=== PATIENT | female | born 1935 | race Caucasian/White ===

== ENCOUNTER 2017-08-31 06:17 | Emergency (ER) | payer OTHER, BC ==
[2017-08-31 06:28] VITALS: BP 176/85; BMI 20.2
--- NOTE | 2017-08-31 07:06 | RAD ---
HISTORY: Dizziness Study: Chest AP portable Comparison: 09/05/2012 Findings: The heart is minimally enlarged. No congestive heart failure is noted. The lungs are hyperinflated bu t free of acute alveolar infiltrates. No pleural effusions are identified. The bony thorax is unremar kable. IMPRESSION: Lungs hyperinflated but clear Minimal cardiomegaly without congestive heart failure Reported By:
[2017-08-31 07:16] LABS: BASOPHILS # (AUTO) 0.1 X10^3/uL (0.0-0.1); BASOPHILS % (AUTO) 0.8 % (0.2-1.0); EOSINOPHILS # (AUTO) 0.3 x10^3/uL (0.0-0.2); EOSINOPHILS % (AUTO) 3.9 % (0.9-2.9); HEMATOCRIT 43.6 % (36.0-47.0); LYMPHOCYTES % (AUTO) 27.4 % (21.0-51.0); MEAN CORPUSCULAR HEMOGLOBIN 31.7 pg (27.0-34.0); MEAN CORPUSCULAR HGB CONC 34.4 g/dL (33.0-35.0); MEAN CORPUSCULAR VOLUME 92.3 fL (80.0-100.0); MEAN PLATELET VOLUME 8.9 fL (7.4-11.0); MONOCYTES # (AUTO) 0.8 x10^3/uL (0.3-0.8); MONOCYTES % (AUTO) 10.5 % (0.0-13.0); NEUTROPHILS # (AUTO) 4.3 x10^3/uL (2.2-4.8); NEUTROPHILS % (AUTO) 57.4 % (42.0-75.0); PLATELET COUNT 238 X10^3/uL (150.0-450.0); RED BLOOD COUNT 4.73 X10^6/uL (3.5-5.4); RED CELL DISTRIBUTION WIDTH 13.4 % (11.6-16.5); WHITE BLOOD COUNT 7.5 X10^3/uL (3.6-10.0)
[2017-08-31 07:17] LABS: BLOOD UREA NITROGEN 18 mg/dL (7-18); CARBON DIOXIDE 29.1 mmol/L (21-32); CHLORIDE 106 mmol/L (98-107); COR NA(FOR HYPERGLY) 144 mmol/L (136-145); CREATININE 1.14 mg/dL (0.55-1.02); SODIUM 143 mmol/L (136-145); TROPONIN I < 0.02 ng/mL (0-1.5); eGFR BLACK RACES 59 (>60); eGFR NON BLACK RACES 49 (>60)
[2017-08-31 07:21] LABS: ALANINE AMINOTRANSFERASE 26 Units/L (12-78); ALBUMIN 3.4 g/dL (3.4-5.0); ALKALINE PHOSPHATASE 73 Units/L (46-116); ASPARTATE AMINO TRANSFERASE 23 Units/L (15-37); CREATINE KINASE 123 Units/L (26-192); CREATINE KINASE MB 2.5 ng/mL (0-4.0); MAGNESIUM 1.9 mg/dL (1.7-2.9); TOTAL PROTEIN 7.2 g/dL (6.4-8.2)
[2017-08-31] MEDS ORDERED: ANTIVERT TAB 25 MG PO ONE (07:36)
[2017-08-31] MEDS ORDERED: ANTIVERT TAB 25 MG ONE (07:37)
--- NOTE | 2017-08-31 07:40 | DR.GENAD ---
HPI - PCP Primary Care Physician: pelletier - Complaint/Symptoms Chief Complaint Doctors Comments: I have dizzines from yesterday. This is positional with position or body changes. She feels light headed and unsteady like things are moving around her especially when assuming the upright position after bending. There is some tinnitus, nausea but no vomitting. She denies SOB or chest pain. Chief Complaint:: pt states" i'm having terrible dizziness and ringing in my ears and i've been nauseaed and vomiting" - Nurses notes reviewed Nurses Notes Review: Yes - Source History Provided: Patient - Mode of Arrival Mode of Arrival: Wheelchair - Timing Onset of Chief Complaint: 08/30/17 Came on: Gradually - Associated Signs and Symptoms Associated Signs and Symptoms: see HPI <MAYTE MCDERMOTT - Last Filed: 08/31/17 08:03> PMH - PMH Past Medical History: Yes Past Medical History: Hypertension, Hypothyroidism Past Medical History Comment: Valvular Heart disease. She denies arrythmia/a. fib. Past Surgical History: Yes Surgical History: Hysterectomy - Family History History of Family Medical Conditions: No - Social History Does patient currently use any type of tobacco product: No Have you used tobacco products in the last 12 months: No Does any household member use tobacco: No Alcohol Use: None Do you use any recreational Drugs:: No Lives With: Alone Lives Where: Home - infectious screening In the last 2 months have you had wt loss of >10#?: NO Have you had fever, night sweats or hemotysis?: No Have you traveled outside the country in the last 6 months?: No Isolation: Standard <MAYTE MCDERMOTT - Last Filed: 08/31/17 08:03> ROS - Review of Systems Constitutional: No Symptoms Reported Eyes: No Symptoms Reported ENTM: No Symptoms Reported Respiratoy: No Symptoms Reported Cardiovascular: No Symptoms Reported Gastrointestinal/Abdominal: No Symptoms Reported Genitourinary: No Symptoms Reported Neurological: Dizziness Musculoskeletal: No Symptoms Reported Integumentary: No Symptoms Reported Hematologic/Lymphatic: No Symptoms Reported Endocrine: No Symptoms Reported Psychiatric: No Symptoms Reported All Other Systems: Reviewed and Negative <MAYTE MCDERMOTT - Last Filed: 08/31/17 08:03> PE - General Limitations: No Limitations General Appearance: Alert, In No Apparent Distress - Head Head Exam: Normal Inspection - Eyes Eye exam: Normal Appearance, EOMI - ENT ENT Exam: Normal Exam - Neck Neck Exam: Normal Inspection, Trachea Midline - Chest Chest Inspection: Normal Inspection - Respiratory Respiratory Exam: Normal Lung Sounds Bilat - Cardiovascular Cardiovascular Exam: Irregular Rhythm, +S1, +S2 - Abdominal Exam Abdominal Exam: Normal Inspection, Normal Bowel Sounds, Soft - Extremities Extremities Exam: Normal Inspection, Full ROM, Normal Capillary Refill - Back Back Exam: Normal Inspection - Neurologic Neurological Exam: Alert, Oriented X3, CN II-XII Intact - Psychiatric Psychiatric Exam: Normal Affect - Skin Skin Exam: Warm, Dry, Intact <NABILKARINA MEJIADAYOART - Last Filed: 08/31/17 08:03> - Vital Signs Vitals: Temperature 98.9 F Pulse Rate 73 Respiratory Rate 18 Blood Pressure 176/85 O2 Sat by Pulse Oximetry 97 Course - Reevaluation 1st: Improved - Education/Counseling Education/Counseling: Patient, Family, Counseling Educated On: Treatment, Diagnosis, Prognosis, Needs for Follow Up <MAYTE MCDERMOTT - Last Filed: 08/31/17 08:03> ROR - Labs Reviewed Result Diagrams: 08/31/17 06:50 08/31/17 06:50 - XRAY XRAY Interpreted by: Self XRAY Findings: No vascular congestion or infiltrates noted. - EKG Rate: 70 [place]: Normal Rhythm: Afib Block: None <NABILKARINA MEJIADAYOART - Last Filed: 08/31/17 08:03> - Labs Reviewed Result Diagrams: 08/31/17 06:50 08/31/17 06:50 <KEYSHA PASCAL - Last Filed: 09/07/17 09:59> - Labs Reviewed Laboratory: WBC 7.5 X10^3/uL (3.6-10.0) 08/31/17 06:50 RBC 4.73 X10^6/uL (3.5-5.4) 08/31/17 06:50 Hgb 15.0 g/dL (12.0-16.0) 08/31/17 06:50 Hct 43.6 % (36.0-47.0) 08/31/17 06:50 MCV 92.3 fL (80.0-100.0) 08/31/17 06:50 MCH 31.7 pg (27.0-34.0) 08/31/17 06:50 MCHC 34.4 g/dL (33.0-35.0) 08/31/17 06:50 RDW 13.4 % (11.6-16.5) 08/31/17 06:50 Plt Count 238 X10^3/uL (150.0-450.0) 08/31/17 06:50 MPV 8.9 fL (7.4-11.0) 08/31/17 06:50 Neut % 57.4 % (42.0-75.0) 08/31/17 06:50 Lymph % 27.4 % (21.0-51.0) 08/31/17 06:50 [place] % 10.5 % (0.0-13.0) 08/31/17 06:50 Eos % 3.9 % (0.9-2.9) H 08/31/17 06:50 Baso % 0.8 % (0.2-1.0) 08/31/17 06:50 Neut # 4.3 x10^3/uL (2.2-4.8) 08/31/17 06:50 Lymph # 2.0 X10^3/uL (1.3-2.9) 08/31/17 06:50 [place] # 0.8 x10^3/uL (0.3-0.8) 08/31/17 06:50 Eos # 0.3 x10^3/uL (0.0-0.2) H 08/31/17 06:50 Baso # 0.1 X10^3/uL (0.0-0.1) 08/31/17 06:50 Absolute Nucleated RBC 0.1 /100WBC 08/31/17 06:50 Sodium 143 mmol/L (136-145) 08/31/17 06:50 Corrected Sodium 144 mmol/L (136-145) 08/31/17 06:50 Potassium 4.5 mmol/L (3.5-5.1) 08/31/17 06:50 Chloride 106 mmol/L (98-107) 08/31/17 06:50 Carbon Dioxide 29.1 mmol/L (21-32) 08/31/17 06:50 BUN 18 mg/dL (7-18) 08/31/17 06:50 Creatinine 1.14 mg/dL (0.55-1.02) H 08/31/17 06:50 Est GFR (MDRD) Af Amer 59 (>60) 08/31/17 06:50 Est GFR (MDRD) Non-Af 49 (>60) L 08/31/17 06:50 Glucose 125 mg/dL (65-99) H 08/31/17 06:50 Calcium 9.0 mg/dL (8.5-10.1) 08/31/17 06:50 Corrected Calcium TNP 08/31/17 06:50 Magnesium 1.9 mg/dL (1.7-2.9) 08/31/17 06:50 Total Bilirubin 0.60 mg/dL (0.2-1.0) 08/31/17 06:50 AST 23 Units/L (15-37) 08/31/17 06:50 ALT 26 Units/L (12-78) 08/31/17 06:50 Alkaline Phosphatase 73 Units/L (46-116) 08/31/17 06:50 Creatine Kinase 123 Units/L (26-192) 08/31/17 06:50 CK-MB (CK-2) 2.5 ng/mL (0-4.0) 08/31/17 06:50 CK/CKMB % Calc 2.0 % (<4) 08/31/17 06:50 Troponin I < 0.02 ng/mL (0-1.5) 08/31/17 06:50 Total Protein 7.2 g/dL (6.4-8.2) 08/31/17 06:50 Albumin 3.4 g/dL (3.4-5.0) 08/31/17 06:50 Globulin 3.8 g/dL (2.5-4.5) 08/31/17 06:50 Albumin/Globulin Ratio 0.9 Ratio (1.1-2.1) L 08/31/17 06:50 <MAYTE MCDERMOTT - Last Filed: 08/31/17 08:03> <KEYSHA PASCAL - Last Filed: 09/07/17 09:59> - Diagnosis Discharge Problem: Dizziness, A-fib - Discharge Plan Disposition: HOME, SELF-CARE Condition: Stable Prescriptions: Meclizine HCl 12.5 mg PO TID #21 tablet - Follow ups/Referrals Follow ups/Referrals: JONATHAN PELLETIER [Primary Care Provider] - 3 days - Instructions Instructions: Vertigo, [id number]
== END 2017-08-31 08:16 | disposition home or self-care (01) ==
LOC: ER 06:17
DX: I48.91 Unspecified atrial fibrillation (principal); R42 Dizziness and giddiness; R94.31 Abnormal electrocardiogram [ECG] [EKG]
CPT/HCPCS: 36415; 71045; 80053; 82550; 82553; 83735; 84484; 85025; 93005; 93010; 99282; 99283; 99284

== ENCOUNTER 2020-10-29 09:22 | Inpatient (IN) ==
[2020-10-29] MEDS ORDERED: NS 1000 ML 1,000 ML IV ONE ×2 (10:12→13:10)
--- NOTE | 2020-10-29 10:12 | DR.FEVERAD ---
HPI Time seen Time Seen by Provider: 10/29/20 10:01 HPI Comment HPI Comment: PATIENT IS 85YR OLD FEMALE IN ER WITH GENERALIZED WEAKNESS, FEVER AND FATIGUE TIMES 3 DAYS THAT IS WORSE TODAY. TOOK FLU MED OVER THE COUNTER, ANTIBIOTIC AND TYLENOL WITHOUT IMPROVEMENT. TOOK IMMUNIZATION 10/17/2020 FOR COVID 19 VIRUS. Complaints/Symptoms Chief Complaint Doctor Comments: GENERALIZED WEAKNESS, FEVER AND FATIGUE TIMES 3 DAYS. Chief Complaint:: HAD COVID VACCINE ON Sep,STARTED HAVING SYMPTOMS OF FEVER,WEAKNESS LAST THURSDAY AND GETTING WORSE OVER THE WEEKEND. Self Treatment fo Chief Complaint: TAMIFLU OVER THE COUNTER,TYLENOL, CEFDINIR 300 MG SHE HAD FROM [facility] COVID-19 Coronavirus risk:travel/contact w/high risk person: Yes Has patient experienced Coronavirus symptoms: Yes Coronavirus symptoms experienced: Fever, Coughing and Shortness of Breath Nurses notes reviewed Nurses Notes Review: Yes Source History Provided: Patient Mode of Arrival Mode of Arrival: Wheelchair Timing Onset of Chief Complaint: 10/26/20 Came on: Suddenly Duration Duration: Constant Duration: Days Severity Fever Severity/Quality: greater than 100.5 F Context Recent: None Symptoms: Fever History of: None Modifying factors Modifying factors: Tylenol Associated signs and symptoms Associated signs and symptoms: Weakness PMH PMH Past Medical History: Yes Past Medical History: Hypertension Past Surgical History: Yes Surgical History: Hysterectomy Family History History of Family Medical Conditions: Yes Family Medical History: Cancer, [place] and Hypertension Social History Does any household member use tobacco: No Alcohol Use: None Do you use any recreational Drugs:: No Lives With: Alone Lives Where: Home Travel Risk Coronavirus risk:travel/contact w/high risk person: Yes Has patient experienced Coronavirus symptoms: Yes Coronavirus symptoms experienced: Fever, Coughing and Shortness of Breath Infectious screening In the last 2 months have you had wt loss of >10#?: NO Have you had fever, night sweats or hemotysis?: No Have you traveled outside the country in the last 6 months?: No Isolation: Droplet ROS Review of Systems Constitutional: See HPI, Fever, Weakness and Fatigue Eyes: No Symptoms Reported and See HPI ENTM: See HPI, Nose Discharge and Nose Congestion Respiratoy: See HPI and Short of Breath Cardiovascular: No Symptoms Reported and See HPI Gastrointestinal/Abdominal: No Symptoms Reported and See HPI; negative Abdominal Pain, Diarrhea and Vomiting Genitourinary: No Symptoms Reported and See HPI; negative Dysuria, Frequency and Hematuria Neurological: See HPI, Headache and Weakness; negative Dizziness Musculoskeletal: See HPI and Muscle Pain Integumentary: See HPI and Dryness; negative Change in Color, Rash and Juandice Hematologic/Lymphatic: See HPI and Easy Bruising; negative Swollen Glands Endocrine: See HPI and Increased Thirst; negative Increased Urine Psychiatric: No Symptoms Reported and See HPI All Other Systems: Reviewed and Negative PE Vital Signs Vitals: Temperature 97.6 F Pulse Rate 81 Respiratory Rate 20 Blood Pressure [Left Arm] 156/82 Blood Pressure 84/51 O2 Sat by Pulse Oximetry 95 General Limitations: No Limitations General Appearance: Alert Head Head Exam: Normal Inspection and Atraumatic Eyes Eye exam: Normal Appearance and PERRL; negative Scleral Icterus and Conjunctival Injection ENT ENT Exam: Normal Exam, Normal Oropharynx, Normal External Ear Exam and TM's Normal Bilaterally External Ear Exam: Normal External Inspection; negative Mastoid Tenderness TM/Canal Exam: Bilateral: Normal Mouth Exam: Normal Inspection; negative Lip Swelling and Tongue Swelling Teeth Exam: Dental Caries; negative Dental Tenderness # and Gingival Swelling Throat Exam: Normal Inspection; negative Tonsillar Erythema, Tonsillomegaly and Tonsillar Exudate Neck Neck Exam: Normal Inspection and Trachea Midline; negative Tenderness and Lymp hadenopathy Respiratory Respiratory Exam: Respiratory Distress; negative Accessory Muscle Use and Chest Wall Tenderness Respiratory Exam: Bilateral: Rhonchi and Lower: Rhonchi Cardiovascular Cardiovascular Exam: Regular Rate, Normal Rhythm and Normal Heart Sounds MDM Differential Diagnosis Differential Diagnosis: Dehydration, Electrolyte disorder, Myocardial Infarction, Pneumonia, Pyelonephritis, UTI and Viral syndrome COURSE Treatment Treatment: SEE ORDERS. NS 1L IV BOLUS, ROCEPHIN 1GM IVPB, ZOSYN 3.375G IVPB AND DOPAMIN DRIP Reevaluation 1st: Unchanged 2nd: Improved Education/Counseling Education/Counseling: Patient Educated On: Diagnosis and Needs for Follow Up ROR Labs Reviewed Laboratory Results Reviewed?: Yes Result Diagrams: 11/04/20 10:45 11/04/20 10:45 Laboratory: 10/29/20 10:26 Blood Blood Culture - Final 10/29/20 10:24 Blood Blood Culture - Final 10/29/20 10:20 Urine,Clean Catch Urine Culture - Final WBC 31.6 X10^3/uL (3.6-10.0) H* 10/29/20 10:24 RBC 4.09 X10^6/uL (3.5-5.4) 10/29/20 10:24 Hgb 13.0 g/dL (12.0-16.0) 10/29/20 10:24 Hct 38.3 % (36.0-47.0) 10/29/20 10:24 MCV 93.6 fL (80.0-100.0) 10/29/20 10:24 MCH 31.9 pg (27.0-34.0) 10/29/20 10:24 MCHC 34.0 g/dL (33.0-35.0) 10/29/20 10:24 RDW 13.5 % (11.6-16.5) 10/29/20 10:24 Plt Count 312 X10^3/uL (150.0-450.0) 10/29/20 10:24 Plt Count Comment Adequate (ADEQUATE) 10/29/20 10:24 MPV 7.7 fL (7.4-11.0) 10/29/20 10:24 Neut % (Auto) 97.3 % (42.0-75.0) H 10/29/20 10:24 Lymph % (Auto) 0.9 % (21.0-51.0) L 10/29/20 10:24 [place] % (Auto) 1.4 % (0.0-13.0) 10/29/20 10:24 Eos % (Auto) 0.2 % (0.9-2.9) L 10/29/20 10:24 Baso % (Auto) 0.2 % (0.2-1.0) 10/29/20 10:24 Neut # (Auto) 30.7 x10^3/uL (2.2-4.8) H 10/29/20 10:24 Lymph # (Auto) 0.3 X10^3/uL (1.3-2.9) L 10/29/20 10:24 [place] # (Auto) 0.4 x10^3/uL (0.3-0.8) 10/29/20 10:24 Eos # (Auto) 0.1 x10^3/uL (0.0-0.2) 10/29/20 10:24 Baso # (Auto) 0.1 X10^3/uL (0.0-0.1) 10/29/20 10:24 Absolute Nucleated RBC 0.0 /100WBC 10/29/20 10:24 Total Counted 100 10/29/20 10:24 Neutrophils % (Manual) 73 % (39-76) 10/29/20 10:24 Band Neutrophils % 23 % (0-10) H 10/29/20 10:24 Lymphocytes % (Manual) 1 % (13-43) L 10/29/20 10:24 Monocytes % (Manual) 3 % (4-9) L 10/29/20 10:24 Plt Morphology Comment Normal (NORMAL) 10/29/20 10:24 RBC Morphology Normal (NORMAL) 10/29/20 10:24 Sodium 135 mmol/L (136-145) L 10/29/20 10:24 Corrected Sodium 135 mmol/L (136-145) L 10/29/20 10:24 Potassium 5.3 mmol/L (3.5-5.1) H 10/29/20 10:24 Chloride 99 mmol/L (98-107) 10/29/20 10:24 Carbon Dioxide 27.2 mmol/L (21-32) 10/29/20 10:24 BUN 24 mg/dL (7-18) H 10/29/20 10:24 Creatinine 1.75 mg/dL (0.55-1.02) H 10/29/20 10:24 Est GFR (MDRD) Af Amer 35 (>60) L 10/29/20 10:24 Est GFR (MDRD) Non-Af 29 (>60) L 10/29/20 10:24 Glucose 113 mg/dL (65-99) H 10/29/20 10:24 Lactic Acid 2.2 mmol/L (0.4-2.0) H 10/29/20 10:24 Calcium 8.7 mg/dL (8.5-10.1) 10/29/20 10:24 Corrected Calcium 9.6 mg/dL (8.5-10.1) 10/29/20 10:24 Total Bilirubin 0.90 mg/dL (0.2-1.0) 10/29/20 10:24 AST 40 Units/L (15-37) H 10/29/20 10:24 ALT 37 Units/L (12-78) 10/29/20 10:24 Alkaline Phosphatase 67 Units/L (46-116) 10/29/20 10:24 Total Protein 6.7 g/dL (6.4-8.2) 10/29/20 10:24 Albumin 2.9 g/dL (3.4-5.0) L 10/29/20 10:24 Globulin 3.8 g/dL (2.5-4.5) 10/29/20 10:24 Albumin/Globulin Ratio 0.8 Ratio (1.1-2.1) L 10/29/20 10:24 Specimen Type Clean catch urine 10/29/20 10:20 Urine Color [place] (YELLOW) 10/29/20 10:20 Urine Appearance Hazy (CLEAR) 10/29/20 10:20 Urine pH 5.0 (5.0 - 8.0) 10/29/20 10:20 Ur Specific [place] 1.020 (1.000-1.030) 10/29/20 10:20 Urine Protein 2+ (NEGATIVE) 10/29/20 10:20 Urine Glucose (UA) Negative (NEGATIVE) 10/29/20 10:20 Urine Ketones 1+ (NEGATIVE) 10/29/20 10:20 Urine Occult Blood 1+ (NEGATIVE) 10/29/20 10:20 Urine Nitrite Negative (NEGATIVE) 10/29/20 10:20 Urine Bilirubin 1+ (NEGATIVE) 10/29/20 10:20 Urine Urobilinogen 1+ (NORMAL) 10/29/20 10:20 Ur Leukocyte Esterase 3+ (NEGATIVE) 10/29/20 10:20 Urine RBC 3-5 /HPF (0-3) A 10/29/20 10:20 Urine WBC 5-10 /HPF (0-5) A 10/29/20 10:20 Ur Squamous Epith Cells Many /HPF (NEGATIVE) 10/29/20 10:20 Amorphous Sediment 2+ /HPF (NEGATIVE) 10/29/20 10:20 Urine Bacteria Trace /HPF (NEGATIVE) 10/29/20 10:20 Ur Culture Indicated? Yes/culture set up 10/29/20 10:20 SARS CoV-2 RNA Rapid [place] Negative (NEGATIVE) 10/29/20 10:30 XRAY XRAY Interpreted by: Radiologist (REPORT NOTED ) and Self EKG Rate: 98 [place]: Normal Rhythm: NSR Block: None Hypertrophy: None ST: Old, Ant and Infarct Opioid Opioid Risk Tool Age (Seng box if 16-45): No History of Preadolescent Sexual Abuse: No Total: 0 Total Score Risk Category: Low Risk Copyright: Oh[place] LR predicting aberrant behaviors Diagnosis Discharge Problem: Acute dehydration, Acute UTI, Generalized weakness, Fever in adult Instructions Instructions: Shortness of Breath, Adult, Woph-ny-Xgpu Hypotension, Unko-mk-Jeel Fatigue Nonspecific Chest Pain Antibiotic Medicine, Adult, Qtah-la-Gwdw Sepsis, Adult Supraventricular Tachycardia, Adult, Dxjr-qg-Sgem Weakness, Spdu-tl-Fosd Hypertension, Oamd-kq-Qhin Dizziness You've Been Prescribed an Antibiotic in the Hospital for an Infection - CDC (11/2017) Bacteremia Atrial Fibrillation Chest Wall Pain Atrial Fibrillation, Rfbt-ma-Oqnl Fever, Adult, Xndz-hg-Lgss
[2020-10-29] MEDS ORDERED: NS 1000 ML 1,000 ML ONE ×3 (10:18→13:49)
[2020-10-29 10:39] LABS: HEMATOCRIT 38.3 % (36.0-47.0); LYMPHOCYTES # (AUTO) 0.3 X10^3/uL (1.3-2.9); PLATELET COUNT 312 X10^3/uL (150.0-450.0); RED CELL DISTRIBUTION WIDTH 13.5 % (11.6-16.5)
[2020-10-29 10:43] LABS: BASOPHILS # (AUTO) 0.1 X10^3/uL (0.0-0.1); BASOPHILS % (AUTO) 0.2 % (0.2-1.0); EOSINOPHILS # (AUTO) 0.1 x10^3/uL (0.0-0.2); EOSINOPHILS % (AUTO) 0.2 % (0.9-2.9); LYMPHOCYTES % (AUTO) 0.9 % (21.0-51.0); MEAN CORPUSCULAR HEMOGLOBIN 31.9 pg (27.0-34.0); MEAN CORPUSCULAR VOLUME 93.6 fL (80.0-100.0); MEAN PLATELET VOLUME 7.7 fL (7.4-11.0); MONOCYTES # (AUTO) 0.4 x10^3/uL (0.3-0.8); MONOCYTES % (AUTO) 1.4 % (0.0-13.0); NEUTROPHILS # (AUTO) 30.7 x10^3/uL (2.2-4.8); NEUTROPHILS % (AUTO) 97.3 % (42.0-75.0); RED BLOOD COUNT 4.09 X10^6/uL (3.5-5.4)
[2020-10-29 10:48] LABS: WHITE BLOOD COUNT 31.6 X10^3/uL (3.6-10.0)
[2020-10-29 10:51] LABS: BILIRUBIN,URINE 1+ (NEGATIVE); BLOOD/HEMOGLOBIN,URINE 1+ (NEGATIVE); COLOR,URINE ORANGE (YELLOW); GLUCOSE, URINE NEGATIVE (NEGATIVE); KETONES,URINE 1+ (NEGATIVE); LEUKOCYTE ESTERASE ,URINE 3+ (NEGATIVE); NITRITES,URINE NEGATIVE (NEGATIVE); PROTEIN,URINE 2+ (NEGATIVE); UROBILINOGEN,URINE 1+ (NORMAL)
[2020-10-29 10:52] LABS: APPEARANCE,URINE HAZY (CLEAR)
[2020-10-29 10:52] LABS: ALBUMIN 2.9 g/dL (3.4-5.0); CALCIUM 8.7 mg/dL (8.5-10.1); CARBON DIOXIDE 27.2 mmol/L (21-32); COR CA(FOR HYPOALB) 9.6 mg/dL (8.5-10.1); CREATININE 1.75 mg/dL (0.55-1.02); TOTAL PROTEIN 6.7 g/dL (6.4-8.2)
[2020-10-29 11:00] LABS: BAND NEUTROPHILS % 23 % (0-10); PLATELET MORPHOLOGY COMMENT NORMAL (NORMAL)
[2020-10-29 11:01] LABS: AMORPHOUS SEDIMENT,UR 2+ /HPF (NEGATIVE); BACTERIA,URINE TRACE /HPF (NEGATIVE); SQUAMOUS EPITHELIAL CELL,UR MANY /HPF (NEGATIVE)
[2020-10-29] MEDS ORDERED: ROCEPHIN VIAL 1 GRAM 1 G in NS 100 ML IV + SPIKE MINIBAG* 100 ML IV SCH (13:11)
[2020-10-29] MEDS ORDERED: ROCEPHIN VIAL 1 GRAM ONE (13:19)
[2020-10-29] MEDS ORDERED: NS 100 ML IV + SPIKE MINIBAG* 100 ML IV ONE (13:19)
[2020-10-29] MEDS ORDERED: DOPAMINE IV PREMIX 400 MG/250 ML 400 MG/250 ML BAG IV ONE (13:49)
[2020-10-29] MEDS ORDERED: DOPAMINE IV PREMIX 400 MG/250 ML 400 MG/250 ML BAG IV PRN (13:59)
[2020-10-29 14:50] LABS: CKMB % 3.3 % (<4); CREATINE KINASE 30 Units/L (26-192); CREATINE KINASE MB < 1.0 ng/mL (0-4.0); TROPONIN I < 0.02 ng/mL (0-1.5)
[2020-10-29 16:24] VITALS: BMI 23.0
[2020-10-29] MEDS: ZOSYN VIAL 3.375 GRAMS 3.375 G in NS 100 ML IV + SPIKE MINIBAG* 100 ML IV SCH ×2 (18:23→22:38)
[2020-10-29] MEDS: NS 1000 ML 1,000 ML IV SCH (18:24)
[2020-10-29 19:14] LABS: CKMB % 3.2 % (<4); CREATINE KINASE 31 Units/L (26-192); CREATINE KINASE MB < 1.0 ng/mL (0-4.0); TROPONIN I < 0.02 ng/mL (0-1.5)
--- NOTE | 2020-10-29 20:49 | RAD ---
CHEST, 1 VIEWHISTORY: SOB, FEVERStudy: AP view of the chest.Comparison:NoneFindings:The cardiomediastinal silhouette is normal. No focal consolidations, pleural effusions or pneumothorax. Osseous structures demonstrate no acute abnormality. Bilateral hyperexpansion and interstitial prominence.IMPRESSION:1. No acute cardiopulmonary process.2. Findings of COPD.Electronically signed by: GUZMAN CHILDRESS (Oct 29, 2020 20:47:06)
[2020-10-29] MEDS ORDERED: LOPRESSOR TAB 50 MG PO SCH (21:00)
[2020-10-29] MEDS ORDERED: ROCEPHIN VIAL 2 GRAMS 2 G in NS 100 ML IV + SPIKE MINIBAG* 100 ML IV SCH (23:00)
[2020-10-29] MEDS ORDERED: NS 500 ML IV 500 ML IV ONE (23:02)
[2020-10-30 01:13] LABS: CREATINE KINASE 25 Units/L (26-192); CREATINE KINASE MB < 1.0 ng/mL (0-4.0); TROPONIN I < 0.02 ng/mL (0-1.5)
[2020-10-30] MEDS: NS 1000 ML 1,000 ML IV SCH ×2 (03:40→21:41)
[2020-10-30 06:39] LABS: BASOPHILS # (AUTO) 0.1 X10^3/uL (0.0-0.1); BASOPHILS % (AUTO) 0.3 % (0.2-1.0); EOSINOPHILS # (AUTO) 0.1 x10^3/uL (0.0-0.2); EOSINOPHILS % (AUTO) 0.2 % (0.9-2.9); HEMATOCRIT 32.8 % (36.0-47.0); LYMPHOCYTES # (AUTO) 1.2 X10^3/uL (1.3-2.9); MEAN CORPUSCULAR HEMOGLOBIN 31.8 pg (27.0-34.0); MEAN CORPUSCULAR HGB CONC 33.7 g/dL (33.0-35.0); MEAN CORPUSCULAR VOLUME 94.5 fL (80.0-100.0); MEAN PLATELET VOLUME 7.9 fL (7.4-11.0); MONOCYTES # (AUTO) 0.9 x10^3/uL (0.3-0.8); NEUTROPHILS # (AUTO) 21.4 x10^3/uL (2.2-4.8); NEUTROPHILS % (AUTO) 90.5 % (42.0-75.0); PLATELET COUNT 244 X10^3/uL (150.0-450.0); RED BLOOD COUNT 3.47 X10^6/uL (3.5-5.4); RED CELL DISTRIBUTION WIDTH 13.5 % (11.6-16.5); WHITE BLOOD COUNT 23.7 X10^3/uL (3.6-10.0)
[2020-10-30 07:23] LABS: ALANINE AMINOTRANSFERASE 22 Units/L (12-78); ALBUMIN 2.1 g/dL (3.4-5.0); ALKALINE PHOSPHATASE 61 Units/L (46-116); ASPARTATE AMINO TRANSFERASE 26 Units/L (15-37); BLOOD UREA NITROGEN 24 mg/dL (7-18); CALCIUM 7.9 mg/dL (8.5-10.1); CARBON DIOXIDE 20.7 mmol/L (21-32); CHLORIDE 104 mmol/L (98-107); CHOL/HDL RATIO 2.3 (0.0-5.0); CHOLESTEROL 98 mg/dL (0-200); COR CA(FOR HYPOALB) 9.4 mg/dL (8.5-10.1); CREATININE 1.46 mg/dL (0.55-1.02); HDL CHOLESTEROL 42 mg/dL (40-60); MAGNESIUM 1.7 mg/dL (1.7-2.9); SODIUM 137 mmol/L (136-145); TOTAL PROTEIN 5.6 g/dL (6.4-8.2); TRIGLYCERIDES 65 mg/dL (0-150); eGFR NON BLACK RACES 36 (>60)
[2020-10-30 07:40] LABS: BAND NEUTROPHILS % 5 % (0-10); PLATELET MORPHOLOGY COMMENT NORMAL (NORMAL)
--- NOTE | 2020-10-30 09:13 | RAD ---
HISTORYR/O CHF, SOBSTUDYCHEST, 1 [id number]/08/2021FINDINGSThe trachea is midline. Normal heart size. The lungs are well expanded. There is minimal radiopacities in the left base with a trace effusion. No dominant alveolar infiltrates. No pneumothorax. There is mild emphysema.IMPRESSIONNo dominant infiltrates. Trace effusion in the left. Mild emphysema in the upper lobes.Electronically signed by: Amada Guthrie (Oct 30, 2020 09:11:52)
[2020-10-30] MEDS: TOBRAMYCIN SULFATE 80 MG in NS 100 ML IV 100 ML IV SCH (09:26)
[2020-10-30] MEDS: MAGNESIUM SULFATE 1 GRAM/100 mL PREMIX 1 GM/100 ML BAG IV PRN ×2 (10:00→11:14)
[2020-10-30 14:43] LABS: FREE T4 (FREE THYROXINE) 1.1 ng/dL (0.76-1.46); TSH (3RD GENERATION) 1.21 uIU/mL (0.358-3.74)
--- NOTE | 2020-10-30 17:47 | DR.H&P ---
H&P - History & Physical for Day of: H&P Date: 10/29/20 - Chief Complaint Chief Complaint: FEVER, WEAKNESS - History of Present Illness History of Present Illness: PT IS 85 WF ER ADMISSION WITH [facility] HAD COVID VACCINE ON Sep,STARTED HAVING SYMPTOMS OF FEVER,WEAKNESS LAST THURSDAY AND GETTING WORSE OVER THE WEEKEND. PT HAD PMH OF HYPERTENSION, CONTROLLED AND HEART VALVE DISEASE FOLLOWED BY DR BRITTON. PT WAS SEPTIC ON ARRIVAL TO ER, ADMITTED FOR TREATMENT OF ACUTE ILLNESS. - Past Medical History Past Medical History: Hypertension - Past Surgical History Surgical History: Hysterectomy, Other - Family History Family Medical History: Cancer, [place], Hypertension - Social History Does patient currently use any type of tobacco product: No Have you used tobacco products in the last 12 months: No Type of Tobacco Use: None Does any household member use tobacco: No Alcohol Use: None Drug Use: None - Medications Home Medications: No Known Drug Allergies Allergy (Verified 08/31/17 06:20) CONTINUE taking the following medications meloxicam 7.5 mg PO DAILY 10/30/20 [History] - Review of Systems Constitutional: Weakness Eyes: No Symptoms Reported ENT: No Symptoms Reported Respiratory: Cough Cardiovascular: No Symptoms Reported Gastrointestinal: Nausea Genitourinary: No Symptoms Reported Musculoskeletal: No Symptoms Reported Skin: No Symptoms Reported Neurological: Weakness - Physical Exam Vital Signs: Temperature 98 F Pulse Rate [Left Brachial] 95 Pulse Rate 103 Respiratory Rate 20 Blood Pressure [Left Arm] 106/67 Blood Pressure 132/57 O2 Sat by Pulse Oximetry 100 Oriented: Normal Eyes: Normal Ear: Normal Nose: Normal Throat: Normal Respiratory: RLL Diminished, LLL Diminished Cardiovascular: Murmur : Normal Auscultation: Bowel Sounds: Normal Palpation: Normal Tenderness: Normal Skin: Decreased [place]urg[place] Musculoskeletal: Normal Psychiatric: Anxiety Affect: Anxious Speech Pattern: Clear, Appropriate - Assessment/Plan (1) Sepsis Status: Acute Plan: ADMIT, BP CONTROL, IV HYDRATION. STRICT I&OS CARDIAC MONITORING. SUPPLEMENTAL O2, IV ATBX. BLOOD AND URINE CULTURE ON ADMISSION. VERIFY HOME MEDICATION (2) Sepsis associated hypotension Status: Acute (3) A-fib Status: Acute - Allergies Allergies/Adverse Reactions: Allergies Allergy/AdvReac Type Severity Reaction Status Date / Time No Known Drug Allergies Allergy Verified 08/31/17 06:20
[2020-10-30] MEDS: ROCEPHIN VIAL 1 GRAM 1 G in NS 100 ML IV + SPIKE MINIBAG* 100 ML IV SCH (21:41)
[2020-10-30] MEDS: HEMOCYTE-PLUS PO SCH (21:41)
[2020-10-30] MEDS ORDERED: ROCEPHIN VIAL 1 GRAM 1 G in NS 100 ML IV + SPIKE MINIBAG* 100 ML IV SCH (23:00)
[2020-10-31] MEDS: NS 1000 ML 1,000 ML IV SCH ×3 (03:01→14:11)
[2020-10-31 06:38] LABS: BASOPHILS # (AUTO) 0.1 X10^3/uL (0.0-0.1); BASOPHILS % (AUTO) 0.4 % (0.2-1.0); EOSINOPHILS # (AUTO) 0.2 x10^3/uL (0.0-0.2); EOSINOPHILS % (AUTO) 1.2 % (0.9-2.9); HEMATOCRIT 33.1 % (36.0-47.0); HEMOGLOBIN 11.2 g/dL (12.0-16.0); LYMPHOCYTES # (AUTO) 1.2 X10^3/uL (1.3-2.9); LYMPHOCYTES % (AUTO) 6.5 % (21.0-51.0); MEAN CORPUSCULAR HEMOGLOBIN 31.8 pg (27.0-34.0); MEAN CORPUSCULAR HGB CONC 33.9 g/dL (33.0-35.0); MEAN CORPUSCULAR VOLUME 93.7 fL (80.0-100.0); MEAN PLATELET VOLUME 8.1 fL (7.4-11.0); MONOCYTES # (AUTO) 0.7 x10^3/uL (0.3-0.8); MONOCYTES % (AUTO) 3.8 % (0.0-13.0); NEUTROPHILS # (AUTO) 15.7 x10^3/uL (2.2-4.8); NEUTROPHILS % (AUTO) 88.1 % (42.0-75.0); PLATELET COUNT 252 X10^3/uL (150.0-450.0); RED BLOOD COUNT 3.53 X10^6/uL (3.5-5.4); RED CELL DISTRIBUTION WIDTH 13.8 % (11.6-16.5); WHITE BLOOD COUNT 17.8 X10^3/uL (3.6-10.0)
[2020-10-31 06:47] LABS: ALANINE AMINOTRANSFERASE 21 Units/L (12-78); ALBUMIN 2.1 g/dL (3.4-5.0); ALKALINE PHOSPHATASE 76 Units/L (46-116); ASPARTATE AMINO TRANSFERASE 20 Units/L (15-37); BLOOD UREA NITROGEN 22 mg/dL (7-18); CALCIUM 8.1 mg/dL (8.5-10.1); CARBON DIOXIDE 19.8 mmol/L (21-32); CHLORIDE 108 mmol/L (98-107); COR CA(FOR HYPOALB) 9.6 mg/dL (8.5-10.1); CREATININE 1.07 mg/dL (0.55-1.02); SODIUM 139 mmol/L (136-145); TOTAL PROTEIN 5.7 g/dL (6.4-8.2); eGFR NON BLACK RACES 52 (>60)
[2020-10-31 06:48] LABS: MAGNESIUM 2.1 mg/dL (1.7-2.9)
[2020-10-31] MEDS: TOBRAMYCIN SULFATE 80 MG in NS 100 ML IV 100 ML IV SCH (09:19)
[2020-10-31] MEDS: HEMOCYTE-PLUS PO SCH (09:19)
[2020-10-31] MEDS ORDERED: LOPRESSOR TAB 25 MG ONE (11:41)
[2020-10-31] MEDS: LOVENOX INJ 40 MG SYR SC SCH (11:54)
[2020-10-31] MEDS: LOPRESSOR TAB 25 MG PO SCH ×2 (11:56→21:13)
[2020-10-31] MEDS: ROCEPHIN VIAL 1 GRAM 1 G in NS 100 ML IV + SPIKE MINIBAG* 100 ML IV SCH (21:14)
[2020-11-01] MEDS: NS 1000 ML 1,000 ML IV SCH ×3 (05:43→21:41)
[2020-11-01 06:12] LABS: BASOPHILS # (AUTO) 0.1 X10^3/uL (0.0-0.1); BASOPHILS % (AUTO) 0.6 % (0.2-1.0); EOSINOPHILS # (AUTO) 0.2 x10^3/uL (0.0-0.2); EOSINOPHILS % (AUTO) 1.8 % (0.9-2.9); HEMATOCRIT 32.4 % (36.0-47.0); LYMPHOCYTES # (AUTO) 1.6 X10^3/uL (1.3-2.9); LYMPHOCYTES % (AUTO) 13.8 % (21.0-51.0); MEAN CORPUSCULAR HEMOGLOBIN 32.1 pg (27.0-34.0); MEAN CORPUSCULAR HGB CONC 34.1 g/dL (33.0-35.0); MEAN CORPUSCULAR VOLUME 94.2 fL (80.0-100.0); MEAN PLATELET VOLUME 7.9 fL (7.4-11.0); MONOCYTES # (AUTO) 0.8 x10^3/uL (0.3-0.8); MONOCYTES % (AUTO) 7.1 % (0.0-13.0); NEUTROPHILS # (AUTO) 8.8 x10^3/uL (2.2-4.8); NEUTROPHILS % (AUTO) 76.7 % (42.0-75.0); PLATELET COUNT 248 X10^3/uL (150.0-450.0); RED BLOOD COUNT 3.44 X10^6/uL (3.5-5.4); RED CELL DISTRIBUTION WIDTH 13.5 % (11.6-16.5); WHITE BLOOD COUNT 11.5 X10^3/uL (3.6-10.0)
[2020-11-01 06:29] LABS: ALANINE AMINOTRANSFERASE 21 Units/L (12-78); ALBUMIN 1.9 g/dL (3.4-5.0); ALKALINE PHOSPHATASE 70 Units/L (46-116); ASPARTATE AMINO TRANSFERASE 21 Units/L (15-37); BLOOD UREA NITROGEN 13 mg/dL (7-18); CALCIUM 8.1 mg/dL (8.5-10.1); CARBON DIOXIDE 21.7 mmol/L (21-32); CHLORIDE 109 mmol/L (98-107); COR CA(FOR HYPOALB) 9.8 mg/dL (8.5-10.1); CREATININE 0.84 mg/dL (0.55-1.02); SODIUM 138 mmol/L (136-145); TOTAL PROTEIN 5.4 g/dL (6.4-8.2); eGFR NON BLACK RACES > 60 (>60)
[2020-11-01] MEDS: SYNTHROID 25 mcg TAB PO SCH (09:46)
[2020-11-01] MEDS: HEMOCYTE-PLUS PO SCH (09:48)
[2020-11-01] MEDS: TOBRAMYCIN SULFATE 80 MG in NS 100 ML IV 100 ML IV SCH (09:48)
[2020-11-01] MEDS: LOPRESSOR TAB 25 MG PO SCH ×2 (09:53→21:38)
[2020-11-01] MEDS: LOVENOX INJ 40 MG SYR SC SCH (09:53)
--- NOTE | 2020-11-01 10:49 | RAD ---
HISTORY:Atrial fibrillation, COPDStudy: Single view chestComparison:10/30/2020Findings:There are bilateral pleural effusions, greater on the left. There is cardiomegaly with mild central vascular congestion. No pneumothorax identified. Soft tissues are intact.IMPRESSION:Cardiomegaly with bilateral pleural effusions and central venous congestion.Electronically signed by: MELA PEREZ (Nov 01, 2020 10:46:26)
[2020-11-01] MEDS ORDERED: LASIX IVP SCH (21:00)
[2020-11-01] MEDS: ROCEPHIN VIAL 1 GRAM 1 G in NS 100 ML IV + SPIKE MINIBAG* 100 ML IV SCH (21:39)
[2020-11-02] MEDS: NS 1000 ML 1,000 ML IV SCH ×2 (05:06→19:45)
[2020-11-02 06:26] LABS: BASOPHILS # (AUTO) 0.1 X10^3/uL (0.0-0.1); BASOPHILS % (AUTO) 1.2 % (0.2-1.0); EOSINOPHILS # (AUTO) 0.2 x10^3/uL (0.0-0.2); EOSINOPHILS % (AUTO) 1.9 % (0.9-2.9); HEMATOCRIT 33.5 % (36.0-47.0); HEMOGLOBIN 11.7 g/dL (12.0-16.0); LYMPHOCYTES % (AUTO) 18.4 % (21.0-51.0); MEAN CORPUSCULAR HEMOGLOBIN 32.7 pg (27.0-34.0); MEAN CORPUSCULAR HGB CONC 34.8 g/dL (33.0-35.0); MONOCYTES # (AUTO) 1.2 x10^3/uL (0.3-0.8); MONOCYTES % (AUTO) 11.1 % (0.0-13.0); NEUTROPHILS # (AUTO) 7.2 x10^3/uL (2.2-4.8); NEUTROPHILS % (AUTO) 67.4 % (42.0-75.0); PLATELET COUNT 286 X10^3/uL (150.0-450.0); RED BLOOD COUNT 3.57 X10^6/uL (3.5-5.4); RED CELL DISTRIBUTION WIDTH 13.5 % (11.6-16.5); WHITE BLOOD COUNT 10.7 X10^3/uL (3.6-10.0)
[2020-11-02 06:57] LABS: ALANINE AMINOTRANSFERASE 19 Units/L (12-78); ALBUMIN 2.1 g/dL (3.4-5.0); ALKALINE PHOSPHATASE 65 Units/L (46-116); ASPARTATE AMINO TRANSFERASE 16 Units/L (15-37); BLOOD UREA NITROGEN 12 mg/dL (7-18); CALCIUM 8.2 mg/dL (8.5-10.1); CHLORIDE 107 mmol/L (98-107); COR CA(FOR HYPOALB) 9.7 mg/dL (8.5-10.1); CREATININE 0.87 mg/dL (0.55-1.02); SODIUM 139 mmol/L (136-145); TOTAL PROTEIN 5.6 g/dL (6.4-8.2); eGFR NON BLACK RACES > 60 (>60)
[2020-11-02] MEDS ORDERED: PHARMACY COMMENT IV NR ×2 (08:30→09:30)
[2020-11-02 08:56] LABS: CREATININE 0.87 mg/dL (0.55-1.02)
[2020-11-02 09:12] LABS: TOBRAMYCIN,TROUGH 0.6 ug/mL (0-2)
--- NOTE | 2020-11-02 09:47 | RAD ---
HISTORYCHFSTUDYCHEST, 1 VIEWCOMPARISONFINDINGSThe trachea is midline. The cardiac silhouette is mildly enlarged.. Hazy interstitial infiltrate is seen in both lung bases with pleural effusion on the left. This is unchanged from yesterday's film November 01, 2020. The bony thorax is unremarkable.IMPRESSIONStable cardiomegaly left pleural effusion and hazy density in both lung bases without change from yesterday's film.Electronically signed by: NAMRATA WESTBROOK (Nov 02, 2020 09:46:07)
[2020-11-02] MEDS: HEMOCYTE-PLUS PO SCH (10:46)
[2020-11-02] MEDS: LOPRESSOR TAB 25 MG PO SCH ×2 (10:47→20:14)
[2020-11-02] MEDS: SYNTHROID 25 mcg TAB PO SCH (10:47)
[2020-11-02] MEDS: LOVENOX INJ 40 MG SYR SC SCH (10:51)
--- NOTE | 2020-11-02 13:24 | PCM.PROG ---
Progress Note - Progress Note for Day of Date of Exam: 11/02/20 - Subjective Subjective: The patient is a pleasant 85-year-old white female who is currently being treated for sepsis. She was hypotensive on admission through to about yesterday. Her blood pressure had significantly improved with hydration and improvement of renal function. She has been afebrile. The patient had been on Metoprolol on an outpatient basis. She denies any history of atrial fibrillation and she has had atrial fibrillation rhythm with no rapid ventricular response on EKG, however, her Beta Ross had been held because of her hypotension which we resumed at 25 mg two times a day and today since her blood pressure is continuing to be stable, we will increase it to 50 mg two times a day. The patient reports that she is having some fatigue, worse on exertion. The patient does have some bilateral pleural effusions with venous congestion on her x-ray. I do think that since her blood pressure is stable she could tolerate some Lasix. We are going to give her Lasix, 40 mg IV two times a day with Potassium replacement. Her blood pressure was 124/78 this morning with a heart rate in the 101s and she was sating in the 96% on room air without any significant respiratory distress. - Past Medical Family Social History Past Med/Fam/Surg Hx: No changes since H&P Allergies: Allergies No Known Drug Allergies Allergy (Verified 08/31/17 06:20) - Vital Signs and I&O's Vital Signs: Temperature 98.5 F Pulse Rate [Left Brachial] 84 Pulse Rate 103 Respiratory Rate 18 Blood Pressure [Left Arm] 105/69 Blood Pressure 132/57 O2 Sat by Pulse Oximetry 95 Intake and Output: Intake & Output 10/31/20 11/01/20 11/02/20 11/03/20 11:59 11:59 11:59 11:59 Intake Total 3306 / 3306 2570 / 2570 3950 / 3950 Balance 3306 / 3306 2570 / 2570 3950 / 3950 - Physical Exam Oriented: Normal Eyes: Normal Ear: Normal Nose: Normal Throat: Normal Respiratory: Diminished Cardiovascular: Murmur : Normal Auscultation: Bowel Sounds: Normal Tenderness: Normal Skin: Decreased [place]urg[place] Musculoskeletal: Normal Psychiatric: Anxiety Affect: Anxious Speech Pattern: Clear, Appropriate - Laboratory and Diagnostics Result Diagrams: 11/02/20 05:49 11/02/20 08:31 Labs: 10/29/20 10:26 Blood Blood Culture - Preliminary 10/29/20 10:24 Blood Blood Culture - Preliminary 10/29/20 10:20 Urine,Clean Catch Urine Culture - Final Laboratory WBC 10.7 X10^3/uL (3.6-10.0) H 11/02/20 05:49 RBC 3.57 X10^6/uL (3.5-5.4) 11/02/20 05:49 Hgb 11.7 g/dL (12.0-16.0) L 11/02/20 05:49 Hct 33.5 % (36.0-47.0) L 11/02/20 05:49 MCV 94.0 fL (80.0-100.0) 11/02/20 05:49 MCH 32.7 pg (27.0-34.0) 11/02/20 05:49 MCHC 34.8 g/dL (33.0-35.0) 11/02/20 05:49 RDW 13.5 % (11.6-16.5) 11/02/20 05:49 Plt Count 286 X10^3/uL (150.0-450.0) 11/02/20 05:49 Plt Count Comment Adequate (ADEQUATE) 10/30/20 06:09 MPV 8.0 fL (7.4-11.0) 11/02/20 05:49 Neut % (Auto) 67.4 % (42.0-75.0) 11/02/20 05:49 Lymph % (Auto) 18.4 % (21.0-51.0) L 11/02/20 05:49 [place] % (Auto) 11.1 % (0.0-13.0) 11/02/20 05:49 Eos % (Auto) 1.9 % (0.9-2.9) 11/02/20 05:49 Baso % (Auto) 1.2 % (0.2-1.0) H 11/02/20 05:49 Neut # (Auto) 7.2 x10^3/uL (2.2-4.8) H 11/02/20 05:49 Lymph # (Auto) 2.0 X10^3/uL (1.3-2.9) 11/02/20 05:49 [place] # (Auto) 1.2 x10^3/uL (0.3-0.8) H 11/02/20 05:49 Eos # (Auto) 0.2 x10^3/uL (0.0-0.2) 11/02/20 05:49 Baso # (Auto) 0.1 X10^3/uL (0.0-0.1) 11/02/20 05:49 Absolute Nucleated RBC 0.1 /100WBC 11/02/20 05:49 Total Counted 100 10/30/20 06:09 Neutrophils % (Manual) 85 % (39-76) H 10/30/20 06:09 Band Neutrophils % 5 % (0-10) 10/30/20 06:09 Lymphocytes % (Manual) 8 % (13-43) L 10/30/20 06:09 Monocytes % (Manual) 2 % (4-9) L 10/30/20 06:09 Plt Morphology Comment Normal (NORMAL) 10/30/20 06:09 RBC Morphology Normal (NORMAL) 10/30/20 06:09 PT 15.8 SECONDS (11.8-14.3) 10/30/20 06:09 INR Target Range - 10/30/20 06:09 INR 1.29 (0.8-1.3) 10/30/20 06:09 APTT 38.4 SECONDS (22.9-36.5) H 10/30/20 06:09 PTT Comment - 10/30/20 06:09 Sodium 139 mmol/L (136-145) 11/02/20 05:49 Corrected Sodium TNP 11/02/20 05:49 Potassium 3.8 mmol/L (3.5-5.1) 11/02/20 05:49 Chloride 107 mmol/L (98-107) 11/02/20 05:49 Carbon Dioxide 22.0 mmol/L (21-32) 11/02/20 05:49 BUN 12 mg/dL (7-18) 11/02/20 05:49 Creatinine 0.87 mg/dL (0.55-1.02) 11/02/20 08:31 Est GFR (MDRD) Af Amer > 60 (>60) 11/02/20 05:49 Est GFR (MDRD) Non-Af > 60 (>60) 11/02/20 05:49 Glucose 84 mg/dL (65-99) 11/02/20 05:49 Lactic Acid 1.8 mmol/L (0.4-2.0) 10/31/20 09:15 Calcium 8.2 mg/dL (8.5-10.1) L 11/02/20 05:49 Corrected Calcium 9.7 mg/dL (8.5-10.1) 11/02/20 05:49 Magnesium 2.1 mg/dL (1.7-2.9) 10/31/20 05:46 Iron 12 ug/dL (50-175) L 10/30/20 14:05 Transferrin 129 mg/dL (202-364) L 10/30/20 14:05 Ferritin 446 ng/mL (8-252) H 10/30/20 14:05 Total Bilirubin 0.50 mg/dL (0.2-1.0) 11/02/20 05:49 AST 16 Units/L (15-37) 11/02/20 05:49 ALT 19 Units/L (12-78) 11/02/20 05:49 Alkaline Phosphatase 65 Units/L (46-116) 11/02/20 05:49 Creatine Kinase 25 Units/L (26-192) L 10/30/20 00:21 CK-MB (CK-2) < 1.0 ng/mL (0-4.0) 10/30/20 00:21 CK/CKMB % Calc 4.0 % (<4) 10/30/20 00:21 Troponin I < 0.02 ng/mL (0-1.5) 10/30/20 00:21 C-Reactive Protein 73.80 mg/L (0-3.0) H 11/02/20 08:31 B-Natriuretic Peptide 657 pg/mL (0-79) H* 10/31/20 05:46 Total Protein 5.6 g/dL (6.4-8.2) L 11/02/20 05:49 Albumin 2.1 g/dL (3.4-5.0) L 11/02/20 05:49 Globulin 3.5 g/dL (2.5-4.5) 11/02/20 05:49 Albumin/Globulin Ratio 0.6 Ratio (1.1-2.1) L 11/02/20 05:49 Triglycerides 65 mg/dL (0-150) 10/30/20 06:09 Cholesterol 98 mg/dL (0-200) 10/30/20 06:09 LDL Cholesterol, Calc 43 mg/dL (0-100) 10/30/20 06:09 HDL Cholesterol 42 mg/dL (40-60) 10/30/20 06:09 Cholesterol/HDL Ratio 2.3 (0.0-5.0) 10/30/20 06:09 Vitamin B12 1222 pg/mL (193-986) H 10/30/20 14:05 Folate 9.8 ng/mL (>8.6) 10/30/20 14:05 Free T4 1.10 ng/dL (0.76-1.46) 10/30/20 14:05 TSH 3rd Generation 1.210 uIU/mL (0.358-3.74) 10/30/20 14:05 Specimen Type Clean catch urine 10/29/20 10:20 Urine Color [place] (YELLOW) 10/29/20 10:20 Urine Appearance Hazy (CLEAR) 10/29/20 10:20 Urine pH 5.0 (5.0 - 8.0) 10/29/20 10:20 Ur Specific [place] 1.020 (1.000-1.030) 10/29/20 10:20 Urine Protein 2+ (NEGATIVE) 10/29/20 10:20 Urine Glucose (UA) Negative (NEGATIVE) 10/29/20 10:20 Urine Ketones 1+ (NEGATIVE) 10/29/20 10:20 Urine Occult Blood 1+ (NEGATIVE) 10/29/20 10:20 Urine Nitrite Negative (NEGATIVE) 10/29/20 10:20 Urine Bilirubin 1+ (NEGATIVE) 10/29/20 10:20 Urine Urobilinogen 1+ (NORMAL) 10/29/20 10:20 Ur Leukocyte Esterase 3+ (NEGATIVE) 10/29/20 10:20 Urine RBC 3-5 /HPF (0-3) A 10/29/20 10:20 Urine WBC 5-10 /HPF (0-5) A 10/29/20 10:20 Ur Squamous Epith Cells Many /HPF (NEGATIVE) 10/29/20 10:20 Amorphous Sediment 2+ /HPF (NEGATIVE) 10/29/20 10:20 Urine Bacteria Trace /HPF (NEGATIVE) 10/29/20 10:20 Ur Culture Indicated? Yes/culture set up 10/29/20 10:20 Stool Description Fob tube 10/30/20 17:35 Stl Occult Blood (IFOB) Negative (NEGATIVE) 10/30/20 17:35 Tobramycin Trough 0.6 ug/mL (0-2) 11/02/20 08:31 SARS CoV-2 RNA Rapid [place] Negative (NEGATIVE) 10/29/20 10:30 - Plan (1) Sepsis Status: Acute Plan: BP CONTROL, IV HYDRATION. STRICT I&OS CARDIAC MONITORING. SUPPLEMENTAL O2, IV ATBX. BLOOD AND URINE CULTURE ON ADMISSION. VERIFY HOME MEDICATION (2) Sepsis associated hypotension Status: Acute (3) A-fib Status: Acute
[2020-11-02] MEDS: K-DUR TAB 20 MEQ PO SCH ×2 (14:00→20:15)
[2020-11-02] MEDS: LASIX IVP SCH (17:05)
[2020-11-02] MEDS: ROCEPHIN VIAL 1 GRAM 1 G in NS 100 ML IV + SPIKE MINIBAG* 100 ML IV SCH (21:45)
[2020-11-03] MEDS: NS 1000 ML 1,000 ML IV SCH ×4 (00:24→21:03)
[2020-11-03 05:33] LABS: BASOPHILS # (AUTO) 0.1 X10^3/uL (0.0-0.1); BASOPHILS % (AUTO) 0.7 % (0.2-1.0); EOSINOPHILS # (AUTO) 0.3 x10^3/uL (0.0-0.2); EOSINOPHILS % (AUTO) 2.6 % (0.9-2.9); HEMATOCRIT 38.3 % (36.0-47.0); LYMPHOCYTES # (AUTO) 2.2 X10^3/uL (1.3-2.9); LYMPHOCYTES % (AUTO) 16.9 % (21.0-51.0); MEAN CORPUSCULAR HEMOGLOBIN 31.8 pg (27.0-34.0); MEAN CORPUSCULAR HGB CONC 33.9 g/dL (33.0-35.0); MEAN CORPUSCULAR VOLUME 93.7 fL (80.0-100.0); MEAN PLATELET VOLUME 7.7 fL (7.4-11.0); MONOCYTES # (AUTO) 1.3 x10^3/uL (0.3-0.8); MONOCYTES % (AUTO) 10.4 % (0.0-13.0); NEUTROPHILS % (AUTO) 69.4 % (42.0-75.0); PLATELET COUNT 367 X10^3/uL (150.0-450.0); RED BLOOD COUNT 4.09 X10^6/uL (3.5-5.4); RED CELL DISTRIBUTION WIDTH 13.2 % (11.6-16.5)
[2020-11-03 05:48] LABS: ALANINE AMINOTRANSFERASE 20 Units/L (12-78); ALBUMIN 2.2 g/dL (3.4-5.0); ALKALINE PHOSPHATASE 66 Units/L (46-116); ASPARTATE AMINO TRANSFERASE 21 Units/L (15-37); BLOOD UREA NITROGEN 12 mg/dL (7-18); CALCIUM 8.2 mg/dL (8.5-10.1); CARBON DIOXIDE 24.4 mmol/L (21-32); CHLORIDE 105 mmol/L (98-107); COR CA(FOR HYPOALB) 9.6 mg/dL (8.5-10.1); CREATININE 0.96 mg/dL (0.55-1.02); SODIUM 140 mmol/L (136-145); TOTAL PROTEIN 6.2 g/dL (6.4-8.2); eGFR NON BLACK RACES 59 (>60)
[2020-11-03 06:01] LABS: PLATELET MORPHOLOGY COMMENT NORMAL (NORMAL)
[2020-11-03] MEDS: K-DUR TAB 20 MEQ PO SCH ×2 (09:34→21:02)
[2020-11-03] MEDS: LOPRESSOR TAB 25 MG PO SCH ×2 (09:34→21:02)
[2020-11-03] MEDS: LASIX IVP SCH ×2 (09:35→13:15)
[2020-11-03] MEDS: HEMOCYTE-PLUS PO SCH (09:35)
[2020-11-03] MEDS: LOVENOX INJ 40 MG SYR SC SCH (09:36)
[2020-11-03] MEDS: SYNTHROID 25 mcg TAB PO SCH (09:36)
[2020-11-03] MEDS: TOBRAMYCIN SULFATE 80 MG in NS 100 ML IV 100 ML IV SCH (09:39)
[2020-11-03 10:59] LABS: ABG BASE EXCESS 1.6 mmol/L (-2.0-2.0); ABG HCO3 24.2 mmol/L (22-26)
[2020-11-03] MEDS: ASPIRIN EC 81 MG PO SCH (11:30)
--- NOTE | 2020-11-03 12:28 | RAD ---
HISTORYAFib CHFSTUDYPortable AP [id number] stable cardiomegaly. Asymmetric bibasal opacities again noted, left greater than right, consistent with airspace disease and left pleural effusion. The upper lobes remain clear.IMPRESSIONNo change. Stable cardiac prominence and bibasal infiltrates with left pleural effusion. The findings are consistent with pneumonia or pulmonary edema. Follow-up decubitus views would be helpful to quantitate pleural fluid and provide better visualization of the lower lobe abnormalities.Electronically signed by: NOÉ ESCALANTE (Nov 03, 2020 12:25:57)
[2020-11-03] MEDS ORDERED: LANOXIN INJ IVP SCH (13:00)
[2020-11-03] MEDS ORDERED: NS 100 ML IV 100 ML IV ONE (13:42)
--- NOTE | 2020-11-03 15:47 | CT ---
HISTORYElevated D-dimerSTUDYCTA OF THE CHEST WITH CONTRASTCOMPARISONChest x-rays of same dayTECHNIQUEAxial CT was performed from the thoracic inlet to the upper abdomen with an arterial phase IV contrast bolus. The axial sequences are reconstructed with multiplaner reformats;volume rendered MIP and/or 3D reconstruction was generated from the original axial dataset.FINDINGSNo pulmonary thromboembolism is identified. There is no aortic dissection or aneurysm observed. There is mild dilation of the left atrial chamber and right side of the heart. Coronary atherosclerosis is noted. There is a moderate left-sided pleural effusion and a small right-sided pleural effusion, each associated with enhancing passive atelectasis. No mediastinal, hilar or axillary lymph nodes identified. Clustered, fine tree-in-bud type nodules and peribronchial ground-glass opacities are seen within the lingula, left lower lobe, right middle lobe, and right upper lobe. The nodules appear both calcified and noncalcified certain areas. Additionally, there is old granulomatous disease of the spleen and liver denoted by numerous calcified granuloma. No acute abnormalities of the upper abdomen are identified. Evaluation of the osseous structures reveals no aggressive bony lesions or acute osseous abnormalities.IMPRESSIONNo pulmonary thromboembolism or acute aortic pathologyModerate dependent left-sided pleural effusion and small dependent right-sided pleural effusion with associated enhancing passive atelectasis.Clustered, noncalcified and calcified tree-in-bud type nodules of the right and left lung with peribronchial ground-glass opacities may be associated with acute or chronic bronchiolitis.Old granulomatous disease of the liver and spleen is also observed.Mild enlargement of the left atrial chamber and right-sided heart with evidence of coronary atherosclerosis.Radiation dose reduction was achieved through individualized adjustment of kVP and/or mA, through adaptive statistical iterative reconstruction, and/or through automated tube current modulation.Electronically signed by: MALISSA ESCAMILLA (Nov 03, 2020 15:45:32)
[2020-11-03] MEDS ORDERED: LASIX IVP SCH (17:00)
[2020-11-03] MEDS: ROCEPHIN VIAL 1 GRAM 1 G in NS 100 ML IV + SPIKE MINIBAG* 100 ML IV SCH (21:02)
[2020-11-04] MEDS: LANOXIN INJ IVP SCH ×2 (03:08→09:36)
[2020-11-04] MEDS: NS 1000 ML 1,000 ML IV SCH (05:12)
[2020-11-04] MEDS: LOVENOX INJ 40 MG SYR SC SCH (09:36)
[2020-11-04] MEDS: ASPIRIN EC 81 MG PO SCH (09:37)
[2020-11-04] MEDS: SYNTHROID 25 mcg TAB PO SCH (09:37)
[2020-11-04] MEDS: LOPRESSOR TAB 25 MG PO SCH (09:38)
[2020-11-04] MEDS: K-DUR TAB 20 MEQ PO SCH (09:38)
[2020-11-04] MEDS: HEMOCYTE-PLUS PO SCH (09:39)
[2020-11-04] MEDS: LASIX IVP SCH (10:08)
[2020-11-04] MEDS ORDERED: LOMOTIL PO PRN (10:19)
[2020-11-04 11:10] LABS: BASOPHILS # (AUTO) 0.1 X10^3/uL (0.0-0.1); BASOPHILS % (AUTO) 0.7 % (0.2-1.0); EOSINOPHILS # (AUTO) 0.3 x10^3/uL (0.0-0.2); EOSINOPHILS % (AUTO) 2.4 % (0.9-2.9); HEMATOCRIT 39.8 % (36.0-47.0); HEMOGLOBIN 13.7 g/dL (12.0-16.0); LYMPHOCYTES # (AUTO) 1.5 X10^3/uL (1.3-2.9); LYMPHOCYTES % (AUTO) 10.9 % (21.0-51.0); MEAN CORPUSCULAR HEMOGLOBIN 32.2 pg (27.0-34.0); MEAN CORPUSCULAR HGB CONC 34.5 g/dL (33.0-35.0); MEAN CORPUSCULAR VOLUME 93.1 fL (80.0-100.0); MEAN PLATELET VOLUME 7.7 fL (7.4-11.0); MONOCYTES # (AUTO) 1.2 x10^3/uL (0.3-0.8); MONOCYTES % (AUTO) 8.5 % (0.0-13.0); NEUTROPHILS # (AUTO) 10.7 x10^3/uL (2.2-4.8); NEUTROPHILS % (AUTO) 77.5 % (42.0-75.0); PLATELET COUNT 448 X10^3/uL (150.0-450.0); RED BLOOD COUNT 4.27 X10^6/uL (3.5-5.4); RED CELL DISTRIBUTION WIDTH 13.5 % (11.6-16.5); WHITE BLOOD COUNT 13.8 X10^3/uL (3.6-10.0)
[2020-11-04 11:25] LABS: ALANINE AMINOTRANSFERASE 24 Units/L (12-78); ALBUMIN 2.5 g/dL (3.4-5.0); ALKALINE PHOSPHATASE 70 Units/L (46-116); ASPARTATE AMINO TRANSFERASE 36 Units/L (15-37); BLOOD UREA NITROGEN 15 mg/dL (7-18); CALCIUM 8.9 mg/dL (8.5-10.1); CARBON DIOXIDE 27.7 mmol/L (21-32); CHLORIDE 102 mmol/L (98-107); COR CA(FOR HYPOALB) 10.1 mg/dL (8.5-10.1); CREATININE 1.08 mg/dL (0.55-1.02); SODIUM 136 mmol/L (136-145); TOTAL PROTEIN 6.9 g/dL (6.4-8.2); eGFR NON BLACK RACES 51 (>60)
--- NOTE | 2020-11-04 14:01 | RAD ---
HISTORYchf, afibSTUDYCHEST, 1 VIEWCOMPARISONNoneTECHNIQUEChest x-ray portable single-viewFINDINGSThere is a moderate left-sided pleural effusion and a small right-sided pleural effusion. Both pleural effusions are associated with dependent passive atelectasis. There is mild accentuation of the interstitium. Cardiac silhouette is not overtly enlarged for technique. There is no mediastinal widening observed. No free air or pneumothorax is identified.IMPRESSIONBilateral pleural effusions with passive atelectasis, left greater than right.Electronically signed by: MALISSA ESCAMILLA (Nov 04, 2020 14:02:54)
[2020-11-04 16:16] VITALS: BP 145/74
== END 2020-11-04 16:10 | disposition home health service (06) | DRG 872 ==
LOC: ER 09:22 → MED/SURG 13:14
PROVIDERS: ADMIT Internal Medicine; ATTEND Internal Medicine
DX: D50.8 Other iron deficiency anemias; A41.89 Other specified sepsis; R19.7 Diarrhea, unspecified; E86.0 Dehydration; R79.89 Other specified abnormal findings of blood chemistry; R94.31 Abnormal electrocardiogram [ECG] [EKG]; I50.9 Heart failure, unspecified; I11.0 Hypertensive heart disease with heart failure; Z20.822 Contact with and (suspected) exposure to COVID-19; I48.20 Chronic atrial fibrillation, unspecified; I95.89 Other hypotension; E03.8 Other specified hypothyroidism; R26.89 Other abnormalities of gait and mobility; R06.02 Shortness of breath; N28.9 Disorder of kidney and ureter, unspecified; N39.0 Urinary tract infection, site not specified; R79.82 Elevated C-reactive protein (CRP)